=== PATIENT | female | born 1995 | race Hispanic/Latino ===

== ENCOUNTER 2017-08-28 14:43 | Emergency (ER) | payer OTHER ==
[~2017-08-28] VITALS: Ht 149.9 cm; Wt 44.4 kg
[2017-08-28 14:51] VITALS: BP 114/84
== END 2017-08-28 16:53 | disposition left against medical advice (07) ==
LOC: EME 14:43
DX: F11.23 Opioid dependence with withdrawal (principal); F41.9 Anxiety disorder, unspecified; F17.200 Nicotine dependence, unspecified, uncomplicated
CPT/HCPCS: 99281; 99284